=== PATIENT | female | born 1985 | race Caucasian/White ===

== ENCOUNTER 2024-11-17 16:27 | Emergency (ER) | payer OTHER, SELFPAY ==
--- NOTE | ~2024-11-17 | US_ITS ---
CLINICAL HISTORY: R ovarian cyst, severe pain, varying intensity US female pelvis LMP:10/28/24. Technique: Ultrasound examination of the pelvis was performed with transabdominal and transvaginal technique for better visualization of the ovaries. Images include: color Doppler and spectral Doppler waveforms. Comparison: CT/SR - CT ABDOMEN PELVIS W IV CON - 11/17/24 17:54 EST Findings: Anteverted uterus measuring 6.9 x 3.1 x 5.1cm with an intramural fibroid in the left aspect of the uterus measuring 1.0 x 1.1 x 1.0 cm. Normal endometrial thickness of 1.1cm. The right ovary is mildly enlarged, measuring 4.2 x 4.4 x 3.8cm, volume of 36.7mL. There is normal echogenicity and arterial/venous vascularity. There is a hypoechoic avascular lesion with a reticular pattern measuring 2.7 x 3.5 x 2.7 cm. The left ovary is normal in size, measuring 3.5 x 1.8 x 1.7cm, volume of 5.6mL. There is normal echogenicity and arterial/venous vascularity. No lesions. No free fluid in the cul-de-sac. Impression: Mildly enlarged right ovary secondary to a 3.5 cm hemorrhagic cyst. No ovarian torsion. No follow up is required. This document has been electronically signed by: Lourdes Odom MD on 11/17/2024 20:55:42
--- NOTE | ~2024-11-17 | CT_ITS ---
CLINICAL HISTORY: RLQ abd pain CT abdomen and pelvis with contrast Comparison: None Findings: No consolidation at the lung bases. Unremarkable gallbladder and bladder. Focal fat at the falciform ligament. Fluid attenuation lesion in the right ovary measuring 3.1 x 4.2 x 3.5 cm. The other solid organs are unremarkable. No bowel wall thickening or dilation. Fecalization in the small bowel may indicate delayed transit. A normal appendix is identified. Colonic diverticulosis. No aneurysm. No calcified atherosclerotic disease. No lymphadenopathy. No ascites. No acute osseous abnormality. Impression: Right ovarian lesion measuring 3.5 cm is likely a cyst which can be further evaluated with pelvic ultrasound. Normal appendix. This document has been electronically signed by: Lourdes Odom MD on 11/17/2024 18:38:05
--- NOTE | 2024-11-17 16:43 | ED_ITS ---
HPI - Abdominal Pain General Chief Complaint: Abdominal Pain Stated Complaint: Lower R abd pain Time Seen by Provider: 11/17/24 16:57 Source: patient Mode of arrival: ambulatory Limitations: no limitations History of Present Illness ED Provider: Sushila Cotter NP HPI narrative: Patient is a 39-year-old female with past medical history of SIBO, reports a complex history involving abdominal adhesions that were initially discovered in 2007 during exploratory lap surgery by her OBGYN. By her account there was ?adhesions of the cecum near the appendix but the appendix was not removed at that time. Reports in 2008 she had recurrent right lower quadrant pain, was being followed by surgeon, had ?adhesions removed? but appendix has remained in place. She states that since this time she gets recurrent ?bad flares of adhesion pain?, and states she has wants been told that perhaps she has chronic appendicitis. However she states that over the past 4 days the pain she is experiencing in her right lower quadrant is more severe than she has experienced in any of the past few years. She additionally states that it does not feel consistent with pain she has experienced chronically due to SIBO. She reports during the first few days had associated nausea but no vomiting. The pain has been constant with a varying intensity. Admits to urinary frequency and voiding large amounts. Denies any hematuria. Denies abnormal vaginal bleeding or discharge. Denies associated fevers or chills. No chest pain or shortness of breath. No associated back pain. No hematochezia or melena. Typically has chronic constipation but take supplements and occasional stool softeners to at least passive daily bowel movement. Denies concern for . Denies concern for sexually transmitted infections. Related Data Previous Rx's ?Medication ?Instructions ?Recorded fluconazole 150 mg tablet 150 mg PO Q3D 2 doses #2 tabs 11/17/24 Allergies Allergy/AdvReac Type Severity Reaction Status Date / Time doxycycline [Doxycycline] AdvReac Unknown SEVERE SUN Verified 11/17/24 16:46 POISIONING acetaminophen [From Percocet] AdvReac Hives Verified 11/17/24 16:46 hydrocodone [From Vicodin] AdvReac Hives Verified 11/17/24 16:46 oxycodone [From Percocet] AdvReac Hives Verified 11/17/24 16:46 Review of Systems Review of Systems Yes all other systems are reviewed and are negative PMFSH Past Medical History Attestation statement: The following information was validated with the patient. Source: old records reviewed Social History Social History Advance Directives: No Advance Directives Information Provided: No Do you have a plan to hurt others: No Plan Patient : No Physical Exam ED Vital Signs: Vital Signs - 24 hr 11/17/24 16:44 11/17/24 20:56 Temperature 98.1 F 98.3 F Pulse Rate 84 60 Respiratory Rate 16 16 Blood Pressure 131/58 L 118/63 Pulse Oximetry 99 97 Oxygen Delivery Method Room Air Room Air BMI result Body Mass Index 27.1 Appearance: Alert.?Oriented to person, place and time. No acute distress.?Normal affect.?? Neck: Normal inspection.? Neck supple.?? CVS: Heart sounds normal. Normal heart rate and rhythm.? Pulses normal.?? Respiratory: No respiratory distress.? Lung sounds clear to auscultation bilaterally?? Abdomen: Soft significant right lower quadrant and suprapubic tenderness upon palpation. No rebound tenderness at McBurney's point. Negative psoas sign. Negative Rovsing sign. Negative Renteria sign. No CVAT. Normoactive bowel sounds. No pulsatile mass.?? Genitourinary:? Supervised by ED x ray electronics wiring technician Maira. Normal external appearance of urethra.? No lesions/lacerations or discharge or tenderness noted. No Bartholin cyst noted.? Speculum exam: normal appearance/palpation of vagina normal. Vaginal canal and cervix with layering of white mucouslike discharge. No vaginal, swelling, erythema, laceratons, or active bleeding noted.?No foreign bodies noted.? No vaginal tenderness noted.? Normal appearance of cervix. Normal palpation of cervix.? Cervical os is closed.? No abnormal cervical discharge noted.? No cervical lesion/mass.?? No cervical motion tenderness noted.? Negative chandelier sign. Uterine size normal. Uterine consistency normal.? Bladder normal to palpation. Right adnexal tenderness upon palpation. Normal rectovaginal exam. Skin: Skin warm and dry.? Normal skin color.? Extremities: No lower extremity edema.? Neuro: Moves all extremities spontaneously. Sensation intact bilaterally. Ambulates with normal steady gait. Course Course Course Narrative: This is a Rapid Medical Exam performed in triage by Sara Chiu PA-C. Full HPI, ROS and PE to be performed by primary ED provider. 39-year-old female pmhx SIBO, abdominal adhesions s/p removal presenting to the ED c/o RLQ abdominal pain x 4 days. Sent in by GI. +abdominal pain with urination. denies dysuria/hematuria, N/V PE: abdomen soft w/RLQ ttp. no rebound or guarding Plan: Labs, UA Reevaluation(s) Reevaluation #1: On my interpretation of CT abdomen pelvis bladder appears distended she does state that she has voided before as well as after the CT scan. Obvious stool within the bowels but does not appear to have any obstruction. Right ovary appears significantly enlarged, there is an apparent ? Calcified border concerning for possibly abscess versus ovarian cyst. She adamantly denies concern for any sexually transmitted infections. She has a partner but has not been sexually active for quite some time. Does admit to having urinary frequency and some mild dysuria, perhaps when thinking about it maybe some mild vaginal itching but she states that is not uncommon depending on the course of her menstrual cycle. Denies abnormal vaginal discharge. She states that in July of 2024 she had ?a small back surgery? does not recall exactly what was performed, but she states that ?after the anesthesia? she had abnormal menstrual periods in abnormal bleeding, her OBGYN had ordered for an ovarian ultrasound which by her account was normal she believes this was approximately 1-2 months ago at [facility]. Patient is a amenable to a pelvic examination, in addition to screening for vaginitis/sexually transmitted infections. Time: 18:28 Reevaluation #2: Pelvic examination does not favor PID. Radiologist impression concerning for a 3.2 cm right ovarian cyst. Obtaining ultrasound for further evaluation exclude torsion. Testing was sent for vaginitis panel, Trichomonas, chlamydia and gonorrhea. Time: 19:13 Reevaluation #3: 1+ yeast noted negative Trichomonas. Single dose fluconazole to be sent to pharmacy. Ultrasound without evidence of torsion but does reveal hemorrhagic cyst. Patient have outpatient follow-up with [facility]. Discussed strict return precautions. All questions answered. Stable for discharge. Medical Decision Making Medical Decision Making MDM Narrative: Patient is a 39-year-old female with past medical history of small intestinal bacterial overgrowth, reported abdominal adhesions in the right lower quadrant who presents emergency department for evaluation of severe right lower quadrant pain which by her account is worse than any prior episodes of pain she has experienced. Overall she appears well, nontoxic, afebrile. Is without tachycardia. On evaluation she does have exquisite right lower quadrant/suprapubic tenderness upon palpation. No CVAT. Will obtain CBC to evaluate for leukocytosis/ anemia, CMP and lipase to evaluate for abnormal electrolytes /abnormal renal function/ abnormal hepatic/biliary function, CT of the abdomen and pelvis and Urinalysis. Does have right lower quadrant tenderness but does not have rebound tenderness at McBurney's point, rigidity, guarding, given her past history, may be appendicitis. No tenderness of the left lower quadrant nor associated nausea, vomiting, diarrhea, constipation, hematochezia or melena to suggest diverticulitis or GI bleed. No appreciable hernia to suggest strangulation/incarceration. Lower suspicion for bowel obstruction. No distention or rigidity to suggest GI perforation. She does admit to urinary frequency, maybe secondary to UTI/pyelonephritis, renal colic, hydronephrosis. hCG is negative, unlikely ectopic , denies concern for sexually transmitted infection. Differential Diagnosis Differential Diagnoses: The differential diagnosis associated with the presentation includes (See narrative above) Admission/Observation Consideration of admission/observation: Escalation of care including admission/observation considered (See narrative above ) Lab Data MDM Lab Attestation statement: I reviewed the patient's lab results. CBC reveals mild leukocytosis 11,500 with left shift. No electrolyte derangement. No SAJI. LFTs and lipase are within normal range. Urinalysis without evidence of infection or microscopic hematuria. HCG is negative. 11/17/24 17:18 11/17/24 17:18 Labs: Lab Results 11/17/24 Range/Units 17:18 WBC 11.5 H (4.8-10.8) X10*3/uL RBC 4.16 L (4.20-5.50) X10*6/uL Hgb 12.3 (12.0-16.0) g/dl Hct 35.9 L (37.0-47.0) % MCV 86.3 (80.0-98.0) fL MCH 29.6 (27.0-33.0) pg MCHC 34.3 (31.0-35.0) g/dl RDW 11.9 (11.0-16.0) % Plt Count 321 (160-400) X10*3/uL MPV 10.1 (9.4-12.3) fL Immature Gran % (Auto) 0.9 H (0.0-0.4) % Neut % (Auto) 85.6 H (45-73) % Lymph % (Auto) 9.4 L (20-40) % Butts % (Auto) 4.0 (2-11) % Eos % (Auto) 0.0 (0-4) % Baso % (Auto) 0.1 (0-2) % Lymph # (Auto) 1.1 L (1.2-4.9) X10*3/uL Butts # (Auto) 0.5 (0.1-1.2) X10*3/uL Eos # (Auto) 0.0 (0.0-0.4) X10*3/uL Baso # (Auto) 0.0 (0.0-0.2) X10*3/uL Abs Immat Gran (auto) 0.10 H (0.00-0.03) X10*3/uL Absolute Neuts (auto) 9.9 H (2.0-8.3) x10*3/uL Absolute Nucleated RBC 0.000 (0.0-0.012) X10*3/uL Nucleated RBC % (auto) 0.0 (0.0-0.2) /100WBC Sodium 141 (135-145) mmol/L Potassium 4.1 (3.3-5.1) mmol/L Chloride 106 (96-108) mmol/L Carbon Dioxide 24 (22-29) mmol/L Anion Gap 15 (12-20) BUN 12 (9-16) mg/dL Creatinine 0.73 (0.5-1.4) mg/dL Estim Creat Clear Calc 110.5 Estimated GFR > 60 Random Glucose 134 H (60-115) mg/dL Calcium 9.3 (8.4-10.2) mg/dL Magnesium 2.0 (1.6-2.6) mg/dL Total Bilirubin 0.2 (0.0-1.0) mg/dL Direct Bilirubin < 0.2 (0.0-0.5) mg/dL AST 19 (5-31) U/L ALT 21 (0-31) U/L Alkaline Phosphatase 44 (39-117) U/L Total Protein 7.2 (6.5-8.0) g/dL Albumin 4.4 (3.5-5.0) g/dL Lipase 44 (8-78) U/L Urine Color Yellow Urine Appearance Clear Urine pH 6.5 (5.0-9.0) Ur Specific [place] 1.010 (1.005-1.025) Urine Protein Negative (Neg-Trace) mg/dL Urine Glucose (UA) Negative (Negative) mg/dL Urine Ketones Negative (Negative) mg/dL Urine Blood Negative (Negative) Urine Nitrite Negative (Negative) Ur Leukocyte Esterase Negative (Negative) Urine Test NEGATIVE (NEGATIVE) Independent Interpretation I performed an independent interpretation of an: CT Scan (See course narrative) Radiology Impression Discussion of test interpretation with radiology: I have reviewed the radiologist's reading. Radiologist Impression: [address] [address] [address] Scan Report Signed Patient: Leyda Overton MR#: [id number] : 1985 Acct:[id number] Age/Sex: 39 / F ADM Date: 11/17/24 Loc: .ED Attending Dr: Ordering Physician: Sara Chiu Date of Service: 11/17/24 Procedure(s): CT abdomen pelvis w IV con Accession Number(s): [id number] cc: Brenden George MD; Sara Chiu~ Report Number: [id number]: Total DLP = 588.00 mGy-cm CLINICAL HISTORY: RLQ abd pain CT abdomen and pelvis with contrast Comparison: None Findings: No consolidation at the lung bases. Unremarkable gallbladder and bladder. Focal fat at the falciform ligament. Fluid attenuation lesion in the right ovary measuring 3.1 x 4.2 x 3.5 cm. The other solid organs are unremarkable. No bowel wall thickening or dilation. Fecalization in the small bowel may indicate delayed transit. A normal appendix is identified. Colonic diverticulosis. No aneurysm. No calcified atherosclerotic disease. No lymphadenopathy. No ascites. No acute osseous abnormality. Impression: Right ovarian lesion measuring 3.5 cm is likely a cyst which can be further evaluated with pelvic ultrasound. Normal appendix. Technique: Ultrasound examination of the pelvis was performed with transabdominal and transvaginal technique for better visualization of the ovaries. Images include: color Doppler and spectral Doppler waveforms. Comparison: CT/SR - CT ABDOMEN PELVIS W IV CON - 11/17/24 17:54 EST Findings: Anteverted uterus measuring 6.9 x 3.1 x 5.1cm with an intramural fibroid in the left aspect of the uterus measuring 1.0 x 1.1 x 1.0 cm. Normal endometrial thickness of 1.1cm. The right ovary is mildly enlarged, measuring 4.2 x 4.4 x 3.8cm, volume of 36.7mL. There is normal echogenicity and arterial/venous vascularity. There is a hypoechoic avascular lesion with a reticular pattern measuring 2.7 x 3.5 x 2.7 cm. The left ovary is normal in size, measuring 3.5 x 1.8 x 1.7cm, volume of 5.6mL. There is normal echogenicity and arterial/venous vascularity. No lesions. No free fluid in the cul-de-sac. Impression: Mildly enlarged right ovary secondary to a 3.5 cm hemorrhagic cyst. No ovarian torsion. No follow up is required. External Record Review External record reviewed: Outpatient record Chronic Conditions Patient?s care impacted by: Other (See narrative above) Medications Administered Discontinued Medications Generic Name Dose Route Start Last Admin Trade Name Freq PRN Reason Stop Dose Admin Iohexol 100 ml 11/17/24 17:58 11/17/24 17:58 Iohexol 350 Mg/Ml 100 Ml Infus..Btl IV 11/17/24 17:59 85 ml ONCE ONE Administration Discharge Plan Discharge Clinical Impression: Hemorrhagic cyst of right ovary, Vaginal yeast infection Patient Disposition: Home, Self-Care Instructions: Ovarian Cyst (ED), Yeast Infection (ED) Prescriptions: New fluconazole 150 mg tablet 150 mg PO Q3D Qty: 2 0RF Rx Instructions: may repeat second dose 72 hrs after first dose if symptoms persist Referrals: Brenden George MD [Primary Care Provider] - Print Language: Luxembourger
[2024-11-17 16:44] VITALS: BP 131/58; PULSE 84; RESP 16; TEMP 36.7; O2SAT 99; BMI 27.1
[2024-11-17 17:27] LABS: MANUAL DIFF FLAG NO
[2024-11-17 17:30] LABS: Appearance Urine Clear; Basophils Percent Auto 0.1 % (0-2); Color Urine Yellow; Glucose Urine UA Negative (Negative); Hematocrit 35.9 % (37.0-47.0); Hemoglobin 12.3 g/dl (12.0-16.0); Imm Gran Pct Auto 0.9 % (0.0-0.4); Leukocyte Esterase Urine Negative (Negative); Lymphocytes Absolute Auto 1.1 X10*3/uL (1.2-4.9); Lymphocytes Percent Auto 9.4 % (20-40); Mean Corpuscular HGB Conc 34.3 g/dl (31.0-35.0); Mean Corpuscular Hemoglobin 29.6 pg (27.0-33.0); Mean Corpuscular Volume 86.3 fL (80.0-98.0); Mean Platelet Volume 10.1 fL (9.4-12.3); Monocytes Absolute Auto 0.5 X10*3/uL (0.1-1.2); Neutrophils Absolute Auto 9.9 x10*3/uL (2.0-8.3); Neutrophils Percent Auto 85.6 % (45-73); Nitrite Urine Negative (Negative); PH 6.5 (5.0-9.0); Platelet Count 321 X10*3/uL (160-400); Red Blood Count 4.16 X10*6/uL (4.20-5.50); Red Cell Distribution Width 11.9 % (11.0-16.0); Urine Blood Negative (Negative); Urine Ketones Negative (Negative); Urine Protein Negative (Neg-Trace); White Blood Count 11.5 X10*3/uL (4.8-10.8)
[2024-11-17 17:31] LABS: UPreg QC Valid YES; Urine Pregnancy NEGATIVE (NEGATIVE)
[2024-11-17 17:41] LABS: Alanine Aminotransferase 21 U/L (0-31); Albumin Level 4.4 g/dL (3.5-5.0); Alkaline Phosphatase 44 U/L (39-117); Anion Gap 15 (12-20); Aspartate Amino Transferase 19 U/L (5-31); Bilirubin Direct < 0.2 mg/dL (0.0-0.5); Bilirubin Total 0.2 mg/dL (0.0-1.0); Blood Urea Nitrogen 12 mg/dL (9-16); Calcium 9.3 mg/dL (8.4-10.2); Carbon Dioxide 24 mmol/L (22-29); Chloride 106 mmol/L (96-108); Creatinine Clr Calc Pharmacy 110.5; Estimated Glomerular Filt Rate > 60; Glucose Random 134 mg/dL (60-115); Lipase 44 U/L (8-78); Potassium 4.1 mmol/L (3.3-5.1); Sodium 141 mmol/L (135-145); Total Protein 7.2 g/dL (6.5-8.0)
[2024-11-17] MEDS: iohexoL 350 MG/ML 100 ML INFUS..BTL IV (17:58)
--- OUTSIDE RECORDS SUMMARY | 2024-11-17 18:39 | XMS_ITS ---
Author Name [facility] Organization Unknown Results Test Name/Text Value Interpretation Date Range Source LAB AP DIAGNOSIS COMMENT Received from [facility], [address] [place] [address], [address], [place] [address] are one slide and one block labeled [id number] , which are retained for our files. Normal [id number] [facility] UCONNPATH LAB AP GROSS DESCRIPTION Received in formalin is an irregularly shaped fragment of skin measuring 0.4 x 0.4 x 0.1 cm. The specimen is bisected and submitted entirely in one cassette. (Gross Description performed by [facility], [place], [place]) Normal [id number] [facility] LAB AP CLINICAL INFORMATION DF vs ISK Normal [id number] [facility] History of Medication Use Medication Directions Dispensed Refills Start Date End Date Stat polyethylene glycol (miraLAx) 17 g packet Take 17 g by mouth daily as needed for constipation. 08/13/2022 active pseudoephedrine (SUDAFED) 30 MG tablet Take 30 mg by mouth 2 (two) times a day as needed. 1 tablet oral twice a day as needed for nasal congestion 08/13/2022 active fluticasone (FloNASE) 50 mcg/spray nasal spray 1 spray into each nostril daily as needed. 1 spray nasal daily as needed for nasal congestion 08/13/2022 active diphenhydrAMINE (BENADRYL) 25 mg capsule Take 25 mg by mouth daily. 1 capsule oral daily at bedtime 08/13/2022 active fluticasone (FloNASE) 50 mcg/spray nasal spray 1 spray into each nostril daily as needed. 1 spray nasal daily as needed for nasal congestion 08/13/2022 active diphenhydrAMINE (BENADRYL) 25 mg capsule Take 25 mg by mouth daily. 1 capsule oral daily at bedtime 08/13/2022 active Magnesium 500 MG Tab Take 1 tablet by mouth nightly. 08/13/2022 active OMEprazole (PriLOSEC OTC) 20 MG tablet Take 20 mg by mouth daily. 1 capsule oral daily, stop taking omeprazole once aspirin and/or NSAIDS are discontinued 08/13/2022 active acetaminophen (TYLENOL) 325 MG tablet [The details of the medication are not available because there are pending changes by a home health clinician.] 08/13/2022 active HYDROmorphone (DILAUDID) 2 MG tablet Take 2-4 mg by mouth every 4 (four) hours as needed. 1-2 tabs oral every 4 hours as needed for acute post op pain, taper off as soon as possible and only use least amount necessary 08/13/2022 active celeCOXIB (CeleBREX) 100 MG capsule Take 100 mg by mouth 2 (two) times a day. 08/13/2022 active Probiotic Product (PROBIOTIC BLEND PO) Take 1 capsule by mouth nightly. 08/13/2022 active aspirin enteric coated (aspirin enteric coated) 81 MG EC tablet Take 81 mg by mouth 2 (two) times a day. 1 tablet oral twice a day for 4 weeks then stop 08/13/2022 active gabapentin (NEURONTIN) 300 MG capsule Take 300 mg by mouth nightly. 08/13/2022 active
[2024-11-17 20:56] VITALS: BP 118/63; PULSE 60; RESP 16; TEMP 36.8; O2SAT 97
[2024-11-17 23:04] VITALS: BP 113/71; PULSE 55; RESP 18; TEMP 36.9; O2SAT 96
[2024-11-17 23:10] VITALS: BP 113/71; PULSE 55; RESP 18; TEMP 36.9; O2SAT 96
[2024-11-18 03:07] LABS: CT PCR NOT DETECTED (Not Detect.); NG PCR NOT DETECTED (Not Detect.)
[2024-11-18 11:52] LABS: Bacterial Vaginosis PCR NEGATIVE (Negative); Candida Group PCR NOT DETECTED (Not Detect); Candida glab krusei PCR NOT DETECTED (Not Detect); Trichomonas vaginalis PCR NOT DETECTED (Not Detect)
== END 2024-11-17 23:10 | disposition home or self-care (01) ==
PROVIDERS: Nurse Practitioner Family; Physician Assistant; Emergency Provider Emergency Medicine Emergency Medical Services; PCP Internal Medicine
DX: N83.201 Unspecified ovarian cyst, right side (principal); B37.31 Acute candidiasis of vulva and vagina; R10.2 Pelvic and perineal pain; R10.31 Right lower quadrant pain; R11.0 Nausea; R30.0 Dysuria; Z79.899 Other long term (current) drug therapy
CPT/HCPCS: 36415; 74177; 76830; 76856; 80048; 80076; 81003; 81025; 81515; 83690; 83735; 85025; 87491; 87591; 93975; 99284; Q9967

== ENCOUNTER → 2024-11-17 16:46 | Outpatient (BNV) | payer OTHER, SELFPAY | PROVIDERS: PCP Internal Medicine; Visit Provider Radiology Diagnostic Radiology | DX: N83.291 Other ovarian cyst, right side (principal); R10.2 Pelvic and perineal pain; R10.31 Right lower quadrant pain | CPT/HCPCS: 74177; 76830; 76856; 93975 ==